=== PATIENT | female | born 1950 | race Hispanic/Latino ===

== ENCOUNTER 2018-09-21 08:44 | Outpatient (CLI) | payer MEDICARE | END 2018-09-21 08:45 | disposition home or self-care (01) | LOC: BICMAMMO 08:44 | PROVIDERS: ATTEND Family Medicine | DX: Z12.31 Encounter for screening mammogram for malignant neoplasm of breast (principal) | CPT/HCPCS: 77063; 77067 ==

== ENCOUNTER 2019-05-13 19:08 | Emergency (ER) | payer MEDICARE ==
[2019-05-13 20:26] LABS: #Basophils 0.1 thou/uL (0.0-0.2); #Eosinphils 0.2 thou/uL (0.0-0.7); #Lymphocytes 2.6 thou/uL (1.20-3.40); #Monocytes 0.5 thou/uL (0.11-0.59); #Neutrophils 3.9 thou/uL (1.40-6.50); %Basophils 0.7 % (0.0-1.0); %Eosinophils 3.1 % (0.0-10.0); %Lymphocytes 35.5 % (21.0-51.0); %Monocytes 6.4 % (0.0-10.0); %Neutrophils 54.3 % (42.0-75.0); Hemoglobin 12.9 g/dL (12.0-16.0); Mean Corpuscular HGB CONC 33.8 g/dL (32.0-36.0); Mean Corpuscular Hemoglobin 29.1 pg (27.0-31.0); Mean Corpuscular Volume 86.3 fL (78.0-98.0); Mean Platelet Volume 7.4 fL (7.4-10.4); Platelet Count 277 thou/uL (130-400); Red Blood Cell (RBC) Count 4.41 mill/uL (4.20-5.40); White Blood Cell (WBC) Count 7.2 thou/uL (4.8-10.8)
[2019-05-13 20:35] LABS: Bilirubin Negative (Negative); Blood, Urine Moderate (Negative); Glucose, Urine (Dipstick) Negative (Negative); Leukocyte Small (Negative); Nitrite Negative (Negative); Protein, Urine (Dipstick) 30 mg/dL (Neg-Trace); Urobilinogen 0.2 mg/dL (Less than 2)
[2019-05-13 20:36] LABS: Clarity Hazy (Clear)
[2019-05-13 20:40] LABS: Bacteria/HPF 1+ HPF (None Seen); RBC/HPF 21-50 HPF (0-3); Squamous Epithelial None Seen HPF (0-3)
[2019-05-13 20:49] LABS: ALT (SGPT) 20 U/L (8-55); AST (SGOT) 17 U/L (5-34); Albumin 4.4 g/dL (3.4-4.8); Alkaline Phosphatase 99 U/L (40-150); Anion Gap 12 mmol/L (10-20); BUN (Urea Nitrogen) 16 mg/dL (9.8-20.1); Bilirubin, Total 0.3 mg/dL (0.2-1.2); Calc. Creatinine Clearance 0 mL/min (70-130); Calcium 9.9 mg/dL (7.8-10.44); Carbon Dioxide 28 mmol/L (23-31); Chloride 104 mmol/L (98-107); Estimated GFR-MDRD 83; Globulin 2.9 g/dL (2.4-3.5); Glucose 96 mg/dL (80-115); Potassium 3.6 mmol/L (3.5-5.1); Protein, Total 7.3 g/dL (6.0-8.3); Sodium 140 mmol/L (136-145)
[2019-05-13] MEDS ORDERED: Ketorolac Tromethamine 30 MG/ML VIAL ONE (21:06)
--- NOTE | 2019-05-13 22:45 | CT ---
CT STONE PROTOCOL: HISTORY: Kidney stones. Left flank pain. Lower abdominal pain. Lower back pain. COMPARISON: 05/09/2019 FINDINGS: Absence of oral and IV contrast reduces the sensitivity of the exam, particular for evaluation of dre id organs involved. Bilateral renal calculi are again seen. Left upper pole hydronephrosis versus parapelvic cyst is aga in noted. The staghorn calculus in the left renal pelvis is stable. No calculi are seen in the ureters or in the urinary bladder. No right-sided hydroureteronephrosis i s seen. No free air or free fluid is noted in the abdomen or pelvis. A normal appearing appendix is present. There is colonic diverticulosis. Vascular calcifications are present without evidence of aneurysma l dilatation of the abdominal aorta. A retroaortic left renal vein is again noted. There are degene rative changes in the spine. IMPRESSION: 1. Bilateral renal calculi. Left upper pole parapelvic cyst versus hydronephrosis. 2. Colonic diverticulosis. 3. Stable exam since 05/09/2019. POS: [facility]
== END 2019-05-14 00:04 | disposition home or self-care (01) ==
LOC: ERS 19:08
DX: M54.5 Low back pain (principal); I10 Essential (primary) hypertension; Z79.899 Other long term (current) drug therapy
CPT/HCPCS: 36415; 74176; 80053; 81003; 81015; 85025; 96374; J1885

== ENCOUNTER 2019-09-10 15:23 | Outpatient (CLI) | payer MEDICARE ==
--- NOTE | 2019-09-10 15:40 | RAD ---
KUB INDICATION: History of renal stones COMPARISON: CT abdomen and pelvis without contrast dated May 13, 2019 FINDINGS: Bowel gas: Nonspecific but without overt appearance of obstruction. Lung bases: Clear. Additional findings: The large staghorn calculus seen within the left renal pelvis on the comparison CT examination is no longer demonstrated. There are numerous punctate nonobstructing calculi bilaterally. The largest is seen within the region of the superior pole of the left kidney measuring probably 7 mm. No suspicious calcification is seen along the expected course of the renal collecting systems. Small posterior seen within the lower pelvis. Osseous structures: No acute osseous abnormality is demonstrated. IMPRESSION: 1. Resolution of previously seen large staghorn calculus involving the left renal pelvis. Bilateral n ephrolithiasis. No suspicious calcification seen along the expected course of the renal collecting systems.
== END 2019-09-10 15:24 | disposition home or self-care (01) ==
LOC: BICRAD 15:23
PROVIDERS: ATTEND Urology
DX: N20.0 Calculus of kidney (principal)
CPT/HCPCS: 74018

== ENCOUNTER 2020-05-31 17:50 | Inpatient (IN) | payer MEDICARE ==
[2020-05-31 18:47] LABS: #Lymphocytes 0.6 thou/uL (1.20-3.40); #Monocytes 0.4 thou/uL (0.11-0.59); #Neutrophils 5.6 thou/uL (1.40-6.50); %Basophils 0.1 % (0.0-1.0); %Eosinophils 0.1 % (0.0-10.0); %Lymphocytes 9.6 % (21.0-51.0); %Monocytes 5.3 % (0.0-10.0); %Neutrophils 84.9 % (42.0-75.0); Hemoglobin 13.2 g/dL (12.0-16.0); Mean Corpuscular HGB CONC 32.1 g/dL (32.0-36.0); Mean Corpuscular Hemoglobin 27.8 pg (27.0-31.0); Mean Corpuscular Volume 86.6 fL (78.0-98.0); Mean Platelet Volume 7.3 fL (7.4-10.4); Platelet Count 254 thou/uL (130-400); RBC Distribution Width 12.5 % (11.5-14.5); Red Blood Cell (RBC) Count 4.76 mill/uL (4.20-5.40); White Blood Cell (WBC) Count 6.6 thou/uL (4.8-10.8)
[2020-05-31 19:08] LABS: ALT (SGPT) 79 U/L (8-55); AST (SGOT) 70 U/L (5-34); Albumin 4.1 g/dL (3.4-4.8); Alkaline Phosphatase 134 U/L (40-110); Anion Gap 14 mmol/L (10-20); BUN (Urea Nitrogen) 16 mg/dL (9.8-20.1); Bilirubin, Total 0.6 mg/dL (0.2-1.2); CK (CPK) 46 U/L (29-168); Calc. Creatinine Clearance 0 mL/min (70-130); Calcium 8.8 mg/dL (7.8-10.44); Carbon Dioxide 28 mmol/L (23-31); Chloride 101 mmol/L (98-107); Estimated GFR-MDRD 84; Globulin 3.2 g/dL (2.4-3.5); Glucose 113 mg/dL (80-115); Potassium 3.6 mmol/L (3.5-5.1); Protein, Total 7.3 g/dL (6.0-8.3); Sodium 139 mmol/L (136-145)
--- NOTE | 2020-05-31 19:08 | RAD ---
AP CHEST: History: Chest pain, shortness of breath. Comparison: 05-29-2020 FINDINGS: Patchy infiltrate in the right mid and lower lung. Hazy infiltrate in the left lower lung. Small effu sions cannot be excluded. IMPRESSION: New bilateral infiltrates. POS: [facility]
[2020-05-31] MEDS ORDERED: PROVENTIL INHALER 6.7 G (200 INHALATIONS) ONE (19:55)
[2020-05-31] MEDS ORDERED: Albuterol 200 PUFF (6.7GM INHALER) ONE (19:58)
[2020-05-31] MEDS ORDERED: cefTRIAXone\\ROCEPHIN 1 GM VIAL ONE (21:32)
[2020-05-31] MEDS ORDERED: Acetaminophen 650 MG Suppository PR PRN (21:40)
[2020-05-31] MEDS ORDERED: Calcium Carbonate 500 MG ChewTAB PO PRN (21:40)
[2020-05-31] MEDS ORDERED: Ondansetron ODT 4 MG TAB PO PRN (21:40)
[2020-05-31] MEDS ORDERED: Senokot S 8.6-50 MG TAB PO PRN (21:40)
[2020-05-31] MEDS ORDERED: Enoxaparin Sodium 40 MG/0.4 ML SYRINGE SC SCH (21:45)
[2020-05-31] MEDS ORDERED: Albuterol Sulfate 1.25 MG/3 ML NEB NEB PRN (21:46)
[2020-05-31] MEDS ORDERED: Aspirin 325 mg Enteric Coated Tablet PO SCH (22:00)
[2020-05-31 22:02] LABS: PTT 28.6 sec (22.9-36.1)
[2020-05-31 22:17] LABS: Troponin I Less than 0.010 ng/mL (< 0.028)
--- NOTE | 2020-05-31 22:41 | HP ---
PRIMARY CARE PHYSICIAN: Out of town. CHIEF COMPLAINT: Chest pain, shortness of breath. HISTORY OF PRESENT ILLNESS: The patient is a 70-year-old female with a past medical history significant for hypertension, who presents to the ER for the above complaint. The patient was seen in the ER two days ago with chest pain and dyspnea. She reported at that time that she had been COVID positive. Today she reports that she was tested approximately 1 week prior to the previous ER visit which is approximately nine days. The patient presents for the same symptoms. She reports that they are unchanged. She reports generalized chest pain throughout her chest, described as aching, nonradiating, constant, it is exacerbated and relieved by nothing. She also reports some associated cough which was nonproductive and shortness of breath. She reports that these symptoms are unchanged from when she was seen in the ER two days ago, but she felt like it would be better if she was seen again in the ER. She denies any heart palpitations, swelling to her lower extremities. She denies any recent fever or chills. She denies any abdominal pain, nausea, vomiting, diarrhea. She denies any dysuria. On presentation to the ER , the patient was tachypneic with respirations in the 30s and a 95% on room air O2 saturation. She had a normal blood pressure, normal pulse and she was afebrile. EKG, normal sinus rhythm, 75 beats per minutes. Initial troponin 0.025. WBC 6.6 with lymphocytopenia. Lactic acid was 1.1. Chest x-ray was positive for new bilateral infiltrates. She was given Rocephin, azithromycin, Proventil inhaler with improvement in symptoms. PAST MEDICAL HISTORY: Significant for hypertension. SURGICAL HISTORY: Nephrostomy tube to the left side. SOCIAL HISTORY: She lives with her family. She has no history of smoking, alcohol, or illicit drug use. FAMILY HISTORY: Noncontributory to this case. ALLERGIES: NO KNOWN DRUG ALLERGIES. HOME MEDICATIONS: No home medications. REVIEW OF SYSTEMS: All review of systems are negative unless otherwise stated in HPI. PHYSICAL EXAMINATION: VITAL SIGNS: Blood pressure 135/80, pulse 81, respirations 26, temperature 99.1 , 98% on 2 L nasal cannula. CONSTITUTIONAL: The patient is alert and oriented to person, place, and time. She is comfortable in bed, nontoxic in appearance. HEAD: Atraumatic and normocephalic. EYES: PERRLA. Extraocular muscles intact. ENT: Bilateral EACs are clear. TMs are intact. Nares are patent bilaterally. Oropharynx is clear. Uvula midline. Moist mucous membranes. No oral lesions. NECK: Full range of motion. No central spinous tenderness. No JVD. No cervical adenopathy. RESPIRATORY/CHEST: Respirations even nonlabored to auscultation. No rhonchi, wheezes, or rales. CARDIOVASCULAR: S1, S2 appreciated. No murmurs, rubs, or gallops. ABDOMEN: Soft, nontender, nondistended. Active bowel sounds. No guarding. No rigidity. No rebound tenderness. BACK: Full range of motion. No central spinous tenderness. No CVA tenderness. EXTREMITIES: Upper extremities; full range of motion, normal strength, sensation intact. Palpable radial pulses. Lower extremities; full range of motion, normal strength, sensation intact. Palpable pedal pulses, no swelling. NEUROLOGICAL: A and O x3. Moves all extremities well. No focal motor deficits. Normal gait. PSYCH: Normal affect. A and O x3. LABS AND DIAGNOSTICS: Chest x-ray is positive for bilateral infiltrates. EKG, normal sinus rhythm, 75 beats per minute. No ST elevations. Initial troponin 0.025. Sodium 139, potassium 3.6, chloride 101, carbon dioxide 28, BUN 16, creatinine 0.69, glucose 113, lactic acid 1.1, total bilirubin 0.6, AST 70, ALT 79, alkaline phosphatase 134, CK 46, troponin 0.025, albumin 4.1. WBC 6.6, hemoglobin 13.2, hematocrit 41.2, platelets 254. IMPRESSION AND PLAN: 1. COVID pneumonia. We will admit the patient to telemetry for observation status. Expected length of stay less than two midnights. The patient positive for COVID at least nine days ago, presented tachypneic which improved with Proventil inhaler and antibiotics. Lactic acid 1.1. WBC 6.6 with lymphocytopenia. Chest x-ray positive for bilateral infiltrates. We will continue Rocephin and azithromycin. We will place the patient on droplet precautions. We will order acute phase reactants, ferritin, CRP, and D-dimer. The patient had CT of the chest two days ago, which is negative for PE. We will consider repeat CT chest if significantly elevated D- dimer, > 2000. We will start vitamin C and zinc. We will recheck labs in the a.m. 2. Chest pain. The patient presents for chest pain, unchanged over the past several days, has a HeartScore of three, low risk. EKG NSR, no ST elevations. Initial troponin 0.025. We will trend troponins, order BNP, mag, and TSH. 3. Hypertension. The patient has a history of hypertension, presented with normal blood pressure. We will continue to monitor blood pressure. The patient does not have any home medications for high blood pressure. 4. Transaminitis. The patient presented with mildly elevated LFTs, which are improved from previous ER visit two days prior. We will check a PT/INR. We will recheck labs in the a.m. 5. Lovenox for deep venous thrombosis prophylaxis. Pepcid for gastrointestinal prophylaxis. The patient is a full code. 6. Discussed the case with Dr. Hogan. Job ID: [id number] [facility]ITAL[facility]
[2020-05-31] MEDS ORDERED: Azithromycin 500 MG in Sodium Chloride 0.9% 250 ML 250 ML IVPB SCH (23:00)
[2020-06-01 01:19] LABS: Troponin I Less than 0.010 ng/mL (< 0.028)
[2020-06-01 04:46] LABS: #Lymphocytes 0.8 thou/uL (1.20-3.40); #Monocytes 0.3 thou/uL (0.11-0.59); #Neutrophils 4.9 thou/uL (1.40-6.50); %Basophils 0.1 % (0.0-1.0); %Eosinophils 0.1 % (0.0-10.0); %Lymphocytes 13.6 % (21.0-51.0); %Monocytes 5.5 % (0.0-10.0); %Neutrophils 80.8 % (42.0-75.0); Hemoglobin 11.7 g/dL (12.0-16.0); Mean Corpuscular HGB CONC 32.5 g/dL (32.0-36.0); Mean Corpuscular Hemoglobin 28.1 pg (27.0-31.0); Mean Corpuscular Volume 86.7 fL (78.0-98.0); Mean Platelet Volume 7.4 fL (7.4-10.4); Platelet Count 241 thou/uL (130-400); RBC Distribution Width 12.5 % (11.5-14.5); Red Blood Cell (RBC) Count 4.16 mill/uL (4.20-5.40); White Blood Cell (WBC) Count 6.1 thou/uL (4.8-10.8)
[2020-06-01 05:13] LABS: ALT (SGPT) 66 U/L (8-55); AST (SGOT) 55 U/L (5-34); Albumin 3.6 g/dL (3.4-4.8); Alkaline Phosphatase 123 U/L (40-110); Anion Gap 12 mmol/L (10-20); BUN (Urea Nitrogen) 12 mg/dL (9.8-20.1); Bilirubin, Total 0.4 mg/dL (0.2-1.2); Calc. Creatinine Clearance 0 mL/min (70-130); Calcium 8.1 mg/dL (7.8-10.44); Carbon Dioxide 27 mmol/L (23-31); Chloride 104 mmol/L (98-107); Estimated GFR-MDRD 86; Globulin 2.8 g/dL (2.4-3.5); Glucose 101 mg/dL (80-115); Potassium 3.6 mmol/L (3.5-5.1); Protein, Total 6.4 g/dL (6.0-8.3); Sodium 139 mmol/L (136-145)
[2020-06-01 05:32] LABS: Bacteria/HPF 1+ HPF (None Seen); Bilirubin Negative (Negative); Blood, Urine Trace (Negative); Clarity Clear (Clear); Glucose, Urine (Dipstick) Normal (Negative); Ketone, Urine 60 mg/dL (Negative); Leukocyte Negative Leu/uL (Negative); Nitrite Negative (Negative); Protein, Urine (Dipstick) 20 mg/dL (Neg-Trace); Specific Gravity, Urine 1.016 (1.002-1.036); Squamous Epithelial 0-3 HPF (0-3); WBC/HPF 0-3 HPF (0-3)
[2020-06-01] MEDS: Enoxaparin Sodium 40 MG/0.4 ML SYRINGE SC SCH (08:24)
[2020-06-01] MEDS: Ascorbic Acid 500 mg Chewable Tablet PO SCH (08:24)
[2020-06-01] MEDS: Dexamethasone 4 mg/ml Vial SLOW IVP SCH (08:25)
[2020-06-01] MEDS: Zinc Sulfate 220 MG CAP PO SCH (08:28)
[2020-06-01] MEDS: Famotidine 20 MG TAB PO SCH ×2 (08:28→22:04)
[2020-06-01] MEDS ORDERED: Prevnar 13-Val Conj/PF 0.5 ML SYRINGE IM ONE (09:00)
[2020-06-01] MEDS: Acetaminophen 325 MG TAB PO PRN ×3 (11:54→22:04)
--- NOTE | 2020-06-01 13:56 | CON ---
DATE OF CONSULTATION: REASON FOR CONSULTATION: COVID infection. HISTORY OF PRESENT ILLNESS: A 70-year-old with history of hypertension, initially developed symptoms about 6 or 7 days prior to admission with some chest pain, cough, fever, and dyspnea. She was given Decadron and then returned and was admitted. Initial findings are BP 130/80, pulse 81, respirations 44, temperature 99.3, and O2 saturation 95 on room air. The exam was not remarkable. Other findings, sodium was normal and creatinine 0.69. AST 70, ALT 79, and alkaline phosphatase 134. CRP 10.17. Ferritin 448. D-dimer 1.21. Urinalysis with 0 to 3 wbc's. Chest x-ray with patchy infiltrates in the right side and hazy infiltrate on the left upper lobe, that was mostly spared. Currently, she is feeling a little better. She does not appear in distress. No headaches. A little bit of chest pain. Dyspnea is less. No cough. No abdominal pain or diarrhea. No genitourinary symptoms. PAST MEDICAL HISTORY: 1. Hypertension. 2. Cholecystitis. 3. Cholecystectomy. 4. Had a nephrostomy tube placed in the past. ALLERGIES: NONE. MEDICATIONS: 1. Azithromycin. 2. Ceftriaxone. 3. Decadron. 4. Famotidine. 5. Ondansetron. FAMILY HISTORY: Not remarkable. Lives in close to [place] with family members. PHYSICAL EXAMINATION: VITAL SIGNS: T-max 99.6, BP 107/68, pulse 81, respirations initially 36 and now more like around 15 or 16 breaths per minute, was saturating 96 with 2 L and now she is at 95 on room air. SKIN: Normal. There is no lymphadenopathy. HEENT: Ocular movements conjugate. Sclerae white. Conjunctivae normal. Oral cavity normal. NECK: Supple. LUNGS: Symmetric, clear breath sounds. HEART: S1 and S2. Regular rate. No S3 or S4. ABDOMEN: Soft, not distended or tender. No ascites. No bladder distention. EXTREMITIES: No joint inflammatory activity. NEUROLOGIC: Nonfocal. LABORATORY DATA: Labs have been reviewed. Followup white cell count 6.1, hemoglobin 11.7, and platelets 241. ASSESSMENT: 1. Hypertension. 2. [id number] COVID infection. She is a borderline indication for Decadron. If tomorrow she is still on room air O2, I would probably discontinue Decadron. Certainly, I would discontinue Rocephin and azithromycin. She would be eligible for early discharge if she remains stable on room air. Since she is going into the inflammatory phase, if there is deterioration tomorrow then continue Decadron and add antiviral treatment. Job ID: [id number] [facility]
[2020-06-01 17:34] VITALS: BMI 24.3
--- NOTE | 2020-06-01 17:41 | PDOC.HOSPP ---
- Subjective Encounter Date: 06/01/20 Encounter Time: 16:00 Subjective: Patient was seen for follow-up for COVID pneumonia. She reports cough, minimal sputum. She denies any fevers. She denies any nausea, vomiting, diarrhea or abdominal pain. - Objective Vital Signs & Weight: Vital Signs (12 hours) Temp Pulse Resp BP Pulse Ox 06/01/20 17:04 95 06/01/20 16:25 98.3 F 67 18 118/72 97 06/01/20 11:55 98.0 F 70 22 H 122/66 96 06/01/20 08:35 99.6 F 81 24 H 107/68 95 Weight Weight 146 lb 8 oz I&O: 05/31/20 06/01/20 06/02/20 06:59 06:59 06:59 Intake Total 860 Output Total 400 Balance 460 Result Diagrams: 06/01/20 04:27 06/01/20 04:27 Additional Labs: Labs and MAR was reviewed by me. EKG Reviewed by me: Yes (tele:nsr) Hospitalist ROS - Review of Systems Respiratory: reports: cough, sputum. denies: dry, shortness of breath, hemoptysis, SOB with excertion, pleuritic pain, wheezing Cardiovascular: denies: chest pain, palpitations, orthopnea, paroxysmal noc. dyspnea, edema, light headedness - Medication Medications: Active Medications Generic Name Dose Route Start Last Admin Trade Name Freq PRN Reason Stop Dose Admin Acetaminophen 650 mg 05/31/20 21:40 06/01/20 16:55 Tylenol PO 650 mg Q4H PRN Administration Headache/Fever/Mild Pain (1-3) Ascorbic Acid 1,000 mg 06/01/20 09:00 06/01/20 08:24 Vitamin C PO 1,000 mg DAILY SILKE Administration Dexamethasone 6 mg 06/01/20 09:00 06/01/20 08:25 Decadron SLOW IVP 6 mg DAILY SILKE Administration Enoxaparin Sodium 40 mg 06/01/20 09:00 06/01/20 08:24 Lovenox SC 40 mg 0900 SILKE Administration Famotidine 20 mg 06/01/20 09:00 06/01/20 08:28 Pepcid PO 20 mg BID SILKE Administration Zinc Sulfate 220 mg 06/01/20 09:00 06/01/20 08:28 Zinc Sulfate PO 220 mg DAILY SILKE Administration - Exam General Appearance: awake alert Eye: anicteric sclera ENT: moist mucosa Neck: supple Heart: RRR Respiratory: CTAB Gastrointestinal: soft, non-tender Skin: no rashes Psychiatric: normal affect, normal behavior Hosp A/P (1) Pneumonia due to COVID-19 virus Code(s): U07.1 - COVID-19; J12.89 - OTHER VIRAL PNEUMONIA Status: Acute (2) HTN (hypertension) Code(s): I10 - ESSENTIAL (PRIMARY) HYPERTENSION Status: Acute - Plan out of bed/ambulate Continue dexamethasone. Patient is clinically improving. Discontinue ceftriaxone and azithromycin. Hypertension is controlled. Likely home tomorrow if doing well on room air. Appreciate infectious disease service input.
[2020-06-01] MEDS ORDERED: cefTRIAXone\\ROCEPHIN 2 GM in Sodium Chloride 0.9% 100 ML IVPB SCH (20:00)
[2020-06-01] MEDS ORDERED: Azithromycin 500 MG in Sodium Chloride 0.9% 250 ML 250 ML IVPB SCH (20:00)
[2020-06-01] MEDS: Guaifenesin DM 100-10/5 ML UDCUP PO PRN (22:03)
[2020-06-02] MEDS: Acetaminophen 325 MG TAB PO PRN (06:08)
[2020-06-02] MEDS: Famotidine 20 MG TAB PO SCH ×2 (08:27→20:33)
[2020-06-02] MEDS: Ascorbic Acid 500 mg Chewable Tablet PO SCH (08:27)
[2020-06-02] MEDS: Dexamethasone 4 mg/ml Vial SLOW IVP SCH (08:28)
[2020-06-02] MEDS: Enoxaparin Sodium 40 MG/0.4 ML SYRINGE SC SCH (08:28)
[2020-06-02] MEDS: Zinc Sulfate 220 MG CAP PO SCH (08:28)
[2020-06-02 09:51] LABS: #Lymphocytes 0.6 thou/uL (1.20-3.40); #Monocytes 0.5 thou/uL (0.11-0.59); #Neutrophils 7.4 thou/uL (1.40-6.50); %Basophils 0.1 % (0.0-1.0); %Eosinophils 0.1 % (0.0-10.0); %Lymphocytes 6.9 % (21.0-51.0); %Monocytes 6.2 % (0.0-10.0); %Neutrophils 86.8 % (42.0-75.0); Hemoglobin 13.6 g/dL (12.0-16.0); Mean Corpuscular HGB CONC 33.2 g/dL (32.0-36.0); Mean Corpuscular Hemoglobin 29.1 pg (27.0-31.0); Mean Corpuscular Volume 87.8 fL (78.0-98.0); Mean Platelet Volume 7.2 fL (7.4-10.4); Platelet Count 295 thou/uL (130-400); RBC Distribution Width 12.4 % (11.5-14.5); Red Blood Cell (RBC) Count 4.68 mill/uL (4.20-5.40); White Blood Cell (WBC) Count 8.6 thou/uL (4.8-10.8)
[2020-06-02 10:13] LABS: Anion Gap 13 mmol/L (10-20); BUN (Urea Nitrogen) 19 mg/dL (9.8-20.1); Calc. Creatinine Clearance 87 mL/min (70-130); Carbon Dioxide 25 mmol/L (23-31); Chloride 105 mmol/L (98-107); Estimated GFR-MDRD Greater than 90; Glucose 140 mg/dL (80-115); Potassium 3.5 mmol/L (3.5-5.1); Sodium 139 mmol/L (136-145)
--- NOTE | 2020-06-02 18:52 | PDOC.HOSPP ---
- Subjective Encounter Date: 06/02/20 Encounter Time: 09:00 Subjective: Patient was seen for follow-up for pneumonia secondary to COVID-19 virus. She reports cough. She denies fevers. - Objective Vital Signs & Weight: Vital Signs (12 hours) Temp Pulse Resp BP Pulse Ox 06/02/20 12:00 97.9 F 68 20 123/71 88 L 06/02/20 08:00 98.0 F 63 20 123/70 94 L Weight Weight 146 lb 8 oz I&O: 06/01/20 06/02/20 06/03/20 06:59 06:59 06:59 Intake Total 860 650 Output Total 400 250 Balance 460 400 Result Diagrams: 06/02/20 09:40 06/02/20 09:40 Additional Labs: Labs and MAR were reviewed by me. EKG Reviewed by me: Yes (Tele: NSR) Hospitalist ROS - Review of Systems Respiratory: reports: cough, dry Cardiovascular: denies: chest pain, palpitations, orthopnea, paroxysmal noc. dyspnea, edema, light headedness Gastrointestinal: denies: nausea, vomiting, abdominal pain, diarrhea, constipation, melena, hematochezia - Medication Medications: Active Medications Generic Name Dose Route Start Last Admin Trade Name Freq PRN Reason Stop Dose Admin Acetaminophen 650 mg 05/31/20 21:40 06/02/20 06:08 Tylenol PO 650 mg Q4H PRN Administration Headache/Fever/Mild Pain (1-3) Ascorbic Acid 1,000 mg 06/01/20 09:00 06/02/20 08:27 Vitamin C PO 1,000 mg DAILY SILKE Administration Dexamethasone 6 mg 06/01/20 09:00 06/02/20 08:28 Decadron SLOW IVP 6 mg DAILY SILKE Administration Enoxaparin Sodium 40 mg 06/01/20 09:00 06/02/20 08:28 Lovenox SC 40 mg 0900 SILKE Administration Famotidine 20 mg 06/01/20 09:00 06/02/20 08:27 Pepcid PO 20 mg BID SILKE Administration Guaifenesin/Dextromethorphan 15 ml 05/31/20 21:40 06/01/20 22:03 Robitussin Dm PO 15 ml Q4H PRN Administration Cough Sodium Chloride 10 ml 05/31/20 21:40 06/02/20 08:28 Flush - Normal Saline IVF 10 ml Q12HR PRN Administration Saline Flush Zinc Sulfate 220 mg 06/01/20 09:00 06/02/20 08:28 Zinc Sulfate PO 220 mg DAILY SILKE Administration - Exam General Appearance: awake alert Eye: anicteric sclera ENT: moist mucosa Neck: supple Heart: RRR Respiratory: CTAB Gastrointestinal: soft, normal bowel sounds Extremities: no cyanosis Psychiatric: normal affect, normal behavior Hosp A/P (1) Pneumonia due to COVID-19 virus Code(s): U07.1 - COVID-19; J12.89 - OTHER VIRAL PNEUMONIA Status: Acute (2) HTN (hypertension) Code(s): I10 - ESSENTIAL (PRIMARY) HYPERTENSION Status: Chronic - Plan out of bed/ambulate Continue dexamethasone. Off of antibiotics. Hypertension is controlled. Likely home tomorrow if doing well on room air.
[2020-06-03 04:50] LABS: #Lymphocytes 0.8 thou/uL (1.20-3.40); #Monocytes 0.7 thou/uL (0.11-0.59); %Basophils 0.1 % (0.0-1.0); %Eosinophils 0.1 % (0.0-10.0); %Lymphocytes 8.9 % (21.0-51.0); %Neutrophils 82.9 % (42.0-75.0); Hemoglobin 12.9 g/dL (12.0-16.0); Mean Corpuscular HGB CONC 30.7 g/dL (32.0-36.0); Mean Corpuscular Hemoglobin 26.9 pg (27.0-31.0); Mean Corpuscular Volume 87.6 fL (78.0-98.0); Mean Platelet Volume 7.6 fL (7.4-10.4); Platelet Count 357 thou/uL (130-400); RBC Distribution Width 12.7 % (11.5-14.5); Red Blood Cell (RBC) Count 4.79 mill/uL (4.20-5.40); White Blood Cell (WBC) Count 8.4 thou/uL (4.8-10.8)
[2020-06-03 05:07] LABS: Anion Gap 13 mmol/L (10-20); BUN (Urea Nitrogen) 22 mg/dL (9.8-20.1); Calc. Creatinine Clearance 90 mL/min (70-130); Calcium 8.8 mg/dL (7.8-10.44); Carbon Dioxide 24 mmol/L (23-31); Chloride 107 mmol/L (98-107); Estimated GFR-MDRD Greater than 90; Glucose 109 mg/dL (80-115); Potassium 3.8 mmol/L (3.5-5.1); Sodium 140 mmol/L (136-145)
[2020-06-03] MEDS: Dexamethasone 4 mg/ml Vial SLOW IVP SCH (08:46)
[2020-06-03] MEDS: Ascorbic Acid 500 mg Chewable Tablet PO SCH (08:46)
[2020-06-03] MEDS: Famotidine 20 MG TAB PO SCH ×2 (08:47→21:29)
[2020-06-03] MEDS: Acetaminophen 325 MG TAB PO PRN ×2 (08:47→21:53)
[2020-06-03] MEDS: Guaifenesin DM 100-10/5 ML UDCUP PO PRN (08:47)
[2020-06-03] MEDS: Enoxaparin Sodium 40 MG/0.4 ML SYRINGE SC SCH (08:47)
[2020-06-03] MEDS: Zinc Sulfate 220 MG CAP PO SCH (08:47)
--- NOTE | 2020-06-03 14:52 | PRG ---
DATE OF SERVICE: 06/03/2020 SUBJECTIVE: Ms. Manning still with some cough. No dyspnea. Eating well. No neurological symptoms. OBJECTIVE: VITAL SIGNS: She is afebrile, O2 sats up to 96 and she is on nasal cannula 2 L, BP 118/67, breathing 20 times a minute. LUNGS: Symmetric air entry. No crackles or wheezing. HEART: S1 and S2. Regular rate. ABDOMEN: Soft, not distended or tender. EXTREMITIES: Moves all extremities equally. LABORATORY DATA: White cell count 8.4, hemoglobin 12.9, platelets 357, 82% neutrophils, and lymphocytes are 800. D-dimer is down to 1.18. Ferritin is up to 569. CRP is stable at 10.92. ASSESSMENT AND DISCUSSION: 1. Hypertension. 2. Moderate COVID infection, on Decadron and this is her 9th day of illness, not eligible for remdesivir since she requires only RA O2. Job ID: [id number] [facility]
--- NOTE | 2020-06-03 17:21 | PDOC.HOSPP ---
- Subjective Encounter Date: 06/03/20 Encounter Time: 07:00 Subjective: Patient seen in follow-up for COVID pneumonia. She reports feeling better. Cough has improved. Pleuritic chest pain has improved. - Objective Vital Signs & Weight: Vital Signs (12 hours) Temp Pulse Pulse Pulse Resp BP BP 06/03/20 16:00 98.6 F 66 20 06/03/20 13:00 98.5 F 57 L 20 06/03/20 11:30 56 L 64 140/70 138/72 06/03/20 08:00 98.3 F 62 20 BP Pulse Ox Pulse Ox Pulse Ox 06/03/20 16:00 128/69 93 L 06/03/20 13:00 118/67 96 06/03/20 11:30 97 94 L 06/03/20 08:00 102/56 L 93 L Weight Weight 146 lb 8 oz I&O: 06/02/20 06/03/20 06/04/20 06:59 06:59 06:59 Intake Total 650 220 Output Total 250 400 400 Balance 400 -400 -180 Result Diagrams: 06/03/20 04:33 06/03/20 04:33 Additional Labs: Labs and MAR were reviewed by me. Hospitalist ROS - Review of Systems Respiratory: reports: cough, pleuritic pain. denies: dry, shortness of breath, hemoptysis, SOB with excertion, sputum, wheezing Cardiovascular: denies: chest pain, palpitations, orthopnea, paroxysmal noc. dyspnea, edema, light headedness - Medication Medications: Active Medications Generic Name Dose Route Start Last Admin Trade Name Freq PRN Reason Stop Dose Admin Acetaminophen 650 mg 05/31/20 21:40 06/03/20 08:47 Tylenol PO 650 mg Q4H PRN Administration Headache/Fever/Mild Pain (1-3) Ascorbic Acid 1,000 mg 06/01/20 09:00 06/03/20 08:46 Vitamin C PO 1,000 mg DAILY SILKE Administration Dexamethasone 6 mg 06/01/20 09:00 06/03/20 08:46 Decadron SLOW IVP 6 mg DAILY SILEK Administration Enoxaparin Sodium 40 mg 06/01/20 09:00 06/03/20 08:47 Lovenox SC 40 mg 0900 SILKE Administration Famotidine 20 mg 06/01/20 09:00 06/03/20 08:47 Pepcid PO 20 mg BID SILKE Administration Guaifenesin/Dextromethorphan 15 ml 05/31/20 21:40 06/03/20 08:47 Robitussin Dm PO 15 ml Q4H PRN Administration Cough Sodium Chloride 10 ml 05/31/20 21:40 06/03/20 08:50 Flush - Normal Saline IVF 10 ml Q12HR PRN Administration Saline Flush Zinc Sulfate 220 mg 06/01/20 09:00 06/03/20 08:47 Zinc Sulfate PO 220 mg DAILY SILKE Administration - Exam General Appearance: awake alert Eye: anicteric sclera ENT: moist mucosa Neck: supple Heart: RRR, no rubs Respiratory: CTAB Gastrointestinal: soft, non-tender Skin: no rashes Musculoskeletal: normal tone Psychiatric: normal affect, normal behavior Hosp A/P (1) Pneumonia due to COVID-19 virus Code(s): U07.1 - COVID-19; J12.89 - OTHER VIRAL PNEUMONIA Status: Acute (2) HTN (hypertension) Code(s): I10 - ESSENTIAL (PRIMARY) HYPERTENSION Status: Chronic - Plan out of bed/ambulate She is saturating reasonably well on room air. Continue dexamethasone. Monitor vital signs and titrate antihypertensives as needed. Possible discharge home in 24 to 48 hours if patient continues to be stable. Continue dexamethasone. Patient has shown significant clinical improvement.
[2020-06-04] MEDS: Enoxaparin Sodium 40 MG/0.4 ML SYRINGE SC SCH (07:54)
[2020-06-04] MEDS: Ascorbic Acid 500 mg Chewable Tablet PO SCH (07:54)
[2020-06-04] MEDS: Dexamethasone 4 mg/ml Vial SLOW IVP SCH (07:54)
[2020-06-04] MEDS: Famotidine 20 MG TAB PO SCH (07:55)
[2020-06-04] MEDS: Zinc Sulfate 220 MG CAP PO SCH (07:55)
[2020-06-04 11:31] LABS: #Lymphocytes 0.6 thou/uL (1.20-3.40); #Monocytes 0.5 thou/uL (0.11-0.59); #Neutrophils 8.6 thou/uL (1.40-6.50); %Basophils 0.1 % (0.0-1.0); %Eosinophils 0.2 % (0.0-10.0); %Lymphocytes 6.5 % (21.0-51.0); %Monocytes 5.2 % (0.0-10.0); %Neutrophils 88.1 % (42.0-75.0); Hemoglobin 13.7 g/dL (12.0-16.0); Mean Corpuscular HGB CONC 32.3 g/dL (32.0-36.0); Mean Corpuscular Hemoglobin 28.4 pg (27.0-31.0); Mean Platelet Volume 7.1 fL (7.4-10.4); Platelet Count 374 thou/uL (130-400); RBC Distribution Width 12.6 % (11.5-14.5); Red Blood Cell (RBC) Count 4.82 mill/uL (4.20-5.40); White Blood Cell (WBC) Count 9.8 thou/uL (4.8-10.8)
[2020-06-04 11:50] LABS: Anion Gap 13 mmol/L (10-20); BUN (Urea Nitrogen) 26 mg/dL (9.8-20.1); CRP (Inflammatory) 2.09 mg/dL (= or < 0.5); Calc. Creatinine Clearance 84 mL/min (70-130); Calcium 8.9 mg/dL (7.8-10.44); Carbon Dioxide 27 mmol/L (23-31); Chloride 105 mmol/L (98-107); Estimated GFR-MDRD 89; Glucose 116 mg/dL (80-115); Potassium 3.7 mmol/L (3.5-5.1); Sodium 141 mmol/L (136-145)
[2020-06-04 12:27] VITALS: BP 133/81; TEMP 98.2
--- NOTE | 2020-06-04 13:50 | DIS ---
DATE OF ADMISSION: 05/31/2020 DATE OF DISCHARGE: 06/04/2020 PRIMARY CARE PROVIDER: Robbie Lozano MD DISCHARGE DIAGNOSES: 1. COVID-19 pneumonia. 2. Transaminitis. CONDITION: Condition of the patient on the day of discharge: Stable. I assessed Ms. Manning on the day of discharge. She denies any chest pain or shortness of breath. Vital signs are stable. S1 and S2 are heard, regular. Lungs are clear to auscultation bilaterally. CONSULTATIONS DURING THIS HOSPITALIZATION: Infectious Diseases, Dr. Douglas. DISCHARGE MEDICATIONS: 1. Lisinopril/hydrochlorothiazide 20/25 mg daily. 2. Vitamin C 1000 mg daily for 6 more days. 3. Dexamethasone 6 mg daily for 6 more days. 4. Zinc sulfate 220 mg daily for 6 more days. 5. Tylenol p.r.n. 6. Motrin p.r.n. 7. Tessalon p.r.n. HOSPITAL COURSE: Ms. Manning is a pleasant 70-year-old lady, who was admitted to [facility] on May 31, 2020, for COVID-19 pneumonia. She was treated with dexamethasone and oxygen. She was seen by Infectious Disease Service, Dr. Douglas. She improved clinically. On the day of discharge, she is ambulating, maintaining good oxygen saturation with exertion. She is being discharged home in a stable condition. She has been advised to check her pulse oximetry at home. She has been advised to seek medical help for oxygen saturation less than 90%. She is aware of the possibility of decompensation following discharge. Home health is being arranged for nursing. POST-ACUTE CARE FOLLOWUP: With primary care provider in 3 days. ACTIVITY: As tolerated. DIET: Heart healthy. DISCHARGE DESTINATION: Home. TIME SPENT: Total amount of time spent in coordinating this discharge: 25 minutes. Job ID: [id number]
== END 2020-06-04 14:35 | disposition home health service (06) | DRG 177 ==
LOC: ERS 17:50 → OBSVTOIN 20:51 → 2SW 20:51
PROVIDERS: ADMIT Internal Medicine; ATTEND Internal Medicine
PROC: 8E0ZXY6 Isolation (ICD-10-PCS; principal; 2020-05-31)
DX: U07.1 COVID-19 (principal); J12.89 Other viral pneumonia; R74.0 Nonspecific elevation of levels of transaminase and lactic acid dehydrogenase [LDH]; I10 Essential (primary) hypertension; Z93.6 Other artificial openings of urinary tract status; Z79.899 Other long term (current) drug therapy; Z90.49 Acquired absence of other specified parts of digestive tract
CPT/HCPCS: 36415; 36600; 71045; 71275; 80048; 80053; 81001; 82550; 82728; 83605; 83690; 83735; 83880; 84145; 84443; 84484; 85025; 85379; 85610; 85652; 85730; 86140; 93005; 96365; 96367; 96372; 96374; 96375; G0378; J0456; J0696; J1100; J1650; J7050; Q9967